=== PATIENT | male | born 2000 ===

== ENCOUNTER 2020-05-09 10:21 | Emergency (ER) | payer OTHER ==
[~2020-05-09] VITALS: Ht 177.8 cm; Wt 63.6 kg
[2020-05-09 10:27] VITALS: BP 142/76; TEMP 98.7
[2020-05-09] MEDS ORDERED: CEPHALEXIN500 M1 PO (11:49)
[2020-05-09 12:33] VITALS: PULSE 54
== END 2020-05-09 12:41 | disposition home or self-care (01) ==
LOC: COL.ER 10:21
DX: S62.502A Fracture of unspecified phalanx of left thumb, initial encounter for closed fracture (principal); W23.0XXA Caught, crushed, jammed, or pinched between moving objects, initial encounter; Y99.0 Civilian activity done for income or pay